=== PATIENT | female | born 1965 | race Caucasian/White ===

== ENCOUNTER 2024-05-28 08:08 | Day surgery (SDC) | payer OTHER, SELFPAY ==
[2024-05-28] VITALS (17 sets, daily range): BP systolic 130–183; BP diastolic 64–98; PULSE 53–88; RESP 12–18; TEMP 36.1–37.1; O2SAT 91–99; BMI 28.2
--- NOTE | 2024-05-28 08:20 | CRLHL7_ITS ---
For Patients: As a result of the Century Cures Act, medical imaging exams and procedure reports are released immediately into your electronic medical record. You may view this report before your referring provider. If you have questions, please contact your health care provider. INDICATION: Right flank pain. COMPARISON: None. TECHNIQUE: CT of the abdomen and pelvis without intravenous contrast. Multiplanar axial, coronal, and sagittal reformats were reconstructed. Contrast: None. FINDINGS: Lung bases: Normal. Liver: Normal. No mass. Gallbladder and bile ducts: Gallbladder is distended but there is not adjacent inflammation. No bile duct dilation. Pancreas: Normal. Spleen: Normal. Adrenal glands: Normal. Kidneys: Normal parenchyma. No cyst or solid mass. No calculi. No urinary tract dilation. Urinary bladder: Normal. Pelvis: No cyst or mass. Vessels: Atherosclerotic vascular calcifications. No aortic aneurysm. Bowel: No dilated or inflamed bowel. Normal appendix. Large cecal and ascending colon stool burden. Fecalization of the distal small bowel contents. Lymph nodes: No adenopathy. Peritoneum: No ascites. Abdominal wall: Fat containing right inguinal hernia Bones: No fractures. No focal worrisome bone lesions. IMPRESSION: 1. Large stool burden in the cecum with fecalization of the distal small bowel contents, may reflect slow transit constipation. 2. No urinary tract calculi or urinary tract dilatation. 3. Distended gallbladder. No immediately adjacent fluid or inflammatory stranding is seen. Please note that all CT scans at this facility use dose modulation, iterative reconstruction, and/or weight-based dosing when appropriate to reduce radiation dose to as low as reasonably achievable. Dictated by Marie Bang MD @ 05/28/2024 8:57:34 AM (Electronically Signed)
--- NOTE | 2024-05-28 08:21 | ED.ABDPAIN ---
HPI - Abdominal Pain General Chief Complaint: Abdominal Pain Stated Complaint: Back pain Time Seen by Provider: 05/28/24 08:16 History of Present Illness HPI narrative: Patient is a 58-year-old woman who presents with approximately 12 hours of right flank pain. The pain begins in the posterior midclavicular line extends anteriorly. She has had urinary frequency but no hematuria. She has had no fevers no chills no night sweats no cough no shortness of breath nor other abdominal pain. She has otherwise been in her usual good state of health takes no prescription medication. The pain is sharp and 6/10 in intensity. Related Data Home Medications ?Medication ?Instructions ?Recorded ?Confirmed No Known Home Medications 05/28/24 05/28/24 Allergies Allergy/AdvReac Type Severity Reaction Status Date / Time No Known Drug Allergies Allergy Verified 05/28/24 09:17 Review of Systems Status of ROS Reports: 10 or more systems reviewed and unremarkable except as noted in History and below Exam Narrative: Exam Narrative: EXAM GENERAL: Patient appears comfortable and well. EYES: No scleral icterus. LYMPH: No supraclavicular or cervical lymphadenopathy. SKIN: Visible skin seen during exam normal or with benign process only. EXT: No dependent lower extremity pedal edema. HEART: Regular rate and rhythm with no murmurs, rubs, or gallops. LUNGS: Clear to auscultation bilaterally with no crackles or wheezes. ABD: Primarily soft nontender with tenderness noted in the right upper quadrant with mild guarding. PSYCH: Good eye contact, speech is not pressured. Const: Vital Signs, click to edit/add: Vital Signs - 24 hr 05/28/24 08:13 Temperature 96.9 F L Pulse Rate [Pulse Oximeter] 68 Respiratory Rate 18 Blood Pressure [Ri ght Upper Arm] 183/82 H Pulse Oximetry 99 Oxygen Delivery Me thod Room Air Course Course ED Course: Patient seen and examined. CT scan CBC CMP lipase UA pending. Patient given 1 L of normal saline 4 mg of IV Zofran. Vital Signs Vital signs: Initial Vital Signs Temperature 96.9 F L 05/28/24 08:13 Temperature Source Temporal Artery Scan 05/28/24 08:13 Pulse Rate 68 05/28/24 08:13 Respiratory Rate 18 05/28/24 08:13 Blood Pressure 183/82 H 05/28/24 08:13 Blood Pressure Mean 115 H 05/28/24 08:13 Pulse Oximetry 99 05/28/24 08:13 Oxygen Delivery Method Room Air 05/28/24 08:13 Vital Signs Temperature 96.9 F L 05/28/24 08:13 Pulse Rate 68 05/28/24 08:13 Respiratory Rate 18 05/28/24 08:13 Blood Pressure 183/82 H 05/28/24 08:13 Pulse Oximetry 99 05/28/24 08:13 Oxygen Delivery Method Room Air 05/28/24 08:13 Temperature 96.9 F L 05/28/24 08:13 Pulse Rate 68 05/28/24 08:13 Respiratory Rate 18 05/28/24 08:13 Blood Pressure 183/82 H 05/28/24 08:13 Pulse Oximetry 99 05/28/24 08:13 Oxygen Delivery Method Room Air 05/28/24 08:13 Medications Administered Medications: Generic Name Dose Route Start Last Admin Trade Name Freq PRN Reason Stop Dose Admin Ondansetron HCl 4 mg 05/28/24 08:31 05/28/24 08:54 Ondansetron 2 Mg/Ml Inj IVP 4 mg ONCE PRN Administration Discontinued Medications Generic Name Dose Route Start Last Admin Trade Name Freq PRN Reason Stop Dose Admin Sodium Chloride 1,000 mls @ 1,000 mls/hr 05/28/24 08:32 05/28/24 10:03 0.9 % Sodium Chloride 1000 Ml IV 05/28/24 09:31 Infused .Q1H ALONDRA Infusion Ketorolac Tromethamine 30 mg 05/28/24 08:31 05/28/24 08:53 Ketorolac 30 Mg/Ml Inj IVP 05/28/24 08:32 30 mg ONCE ONE Administration MDM - Abdominal Pain MDM Narrative Medical decision making narrative: Patient is a 58-year-old woman who presents with approximately 12 hours of right-sided abdominal pain. CT scan showed a mildly distended gallbladder but no other acute abnormalities. Ultrasound shows a hydropic gallbladder with pericholecystic fluid multiple stones and sludge with a clear appearing common bile duct. This time I did review the case with General surgery will be keeping the patient NPO starting IV Zosyn and admit for cholecystectomy. Lab Data Labs: Lab Results 05/28/24 05/28/24 Range/Units 08:30 Unknown WBC 9.15 (4.50-11.00) K/uL RBC 5.11 (4.00-5.20) m/uL Hgb 14.8 (12.0-16.0) gm/dL Hct 47.0 (33.0-51.0) % MCV 92 (80-100) fL MCH 29 (26-34) pg MCHC 32 (32-36) gm/dL RDW Coeff of Jl 13.5 (11.5-15.5) % Plt Count 381 (140-440) K/uL Neut % (Auto) 80.1 H (42.0-72.0) % Lymph % (Auto) 15.3 L (20-44) % [place] % (Auto) 3.0 (0.0-11.0) % Eos % (Auto) 0.2 (0.0-7.0) % Baso % (Auto) 0.9 (0.0-3.0) % Neut # (Auto) 7.30 H (1.7-7.0) K/uL Lymph # (Auto) 1.40 (0.90-2.90) K/uL [place] # (Auto) 0.30 (0.00-0.90) K/UL Eos # (Auto) 0.02 (0.00-0.50) K/uL Baso # (Auto) 0.08 (0.00-0.30) K/uL Abs Immat Gran (auto) 0.05 (0.00-0.30) K/uL Imm/Tot Granulo (auto) 0.5 % Sodium 137 (135-149) mmol/L Potassium 4.1 (3.6-5.1) mmol/L Chloride 104 (96-114) mmol/L Carbon Dioxide 25 (20-32) mmol/L Anion Gap 8 (7-15) mEq/L BUN 19 (7-30) mg/dL Creatinine 0.5 (0.5-1.5) mg/dL Estimated Creat Clear 117.81 Estimated GFR 108 ml/min Glucose 151 H (60-115) mg/dL Calcium 9.1 (8.4-10.6) mg/dL Total Bilirubin 0.5 (0.1-1.5) mg/dL AST 24 (12-35) U/L ALT 25 (4-35) U/L Alkaline Phosphatase 92 (40-150) U/L Total Protein 8.1 (6.0-8.3) g/dL Albumin 4.9 (3.3-5.0) g/dL Lipase 144 (23-300) U/L Urine Color Yellow (Yellow) Urine Appearance Clear (Clear) Urine pH 7.5 (5.0-8.5) Ur Specific [place] 1.020 (1.000-1.030) Urine Protein Negative (Negative) Urine Glucose (UA) Negative (Negative) Urine Ketones Negative (Negative) Urine Blood Negative (Negative) Urine Nitrite Negative (Negative) Urine Bilirubin Negative (Negative) Urine Urobilinogen 0.2 (0.2-1.0) Ur Leukocyte Esterase Negative (Negative) Discharge Plan Discharge Clinical Impression: Acute cholecystitis Patient Disposition: Admitted As Observation Condition: Stable Activity Level: Other Discharge Diet: Other Prescriptions: No Action No Known Home Medications Follow Up/Referrals: Chris Eng MD [Referring] -
[2024-05-28 08:45] LABS: Basophils Absolute Auto 0.08 K/uL (0.00-0.30); Basophils Percent Auto 0.9 % (0.0-3.0); Eosinophils Absolute Auto 0.02 K/uL (0.00-0.50); Eosinophils Percent Auto 0.2 % (0.0-7.0); Hemoglobin* 14.8 gm/dL (12.0-16.0); Immature Granulocytes Abs Auto 0.05 K/uL (0.00-0.30); Immature Granulocytes Pct Auto 0.5 %; Lymphocytes Percent Auto 15.3 % (20-44); Mean Corpuscular HGB Conc 32 gm/dL (32-36); Mean Corpuscular Hemoglobin 29 pg (26-34); Mean Corpuscular Volume 92 fL (80-100); Neutrophils Percent Auto 80.1 % (42.0-72.0); Platelet Count* 381 K/uL (140-440); RDW Coefficient of Variation % 13.5 % (11.5-15.5); Red Blood Count 5.11 m/uL (4.00-5.20); White Blood Count* 9.15 K/uL (4.50-11.00)
[2024-05-28 08:46] LABS: Slide Review Reflex No
[2024-05-28] MEDS: 0.9 % SODIUM CHLORIDE 1000 ml 1,000 ML IV (08:53)
[2024-05-28] MEDS: KETOROLAC 30 MG/ML inj IVP (08:53)
[2024-05-28] MEDS: ONDANSETRON 2 MG/ML inj 4 MG IVP (08:54)
[2024-05-28 09:10] LABS: Albumin* 4.9 g/dL (3.3-5.0)
[2024-05-28 09:11] LABS: Chloride* 104 mmol/L (96-114); Potassium* 4.1 mmol/L (3.6-5.1); Sodium* 137 mmol/L (135-149)
[2024-05-28 09:13] LABS: Alkaline Phosphatase* 92 U/L (40-150); Anion Gap 8 mEq/L (7-15); Aspartate Amino Transferase* 24 U/L (12-35); Bilirubin Total* 0.5 mg/dL (0.1-1.5); Blood Urea Nitrogen* 19 mg/dL (7-30); Carbon Dioxide* 25 mmol/L (20-32); Creatinine* 0.5 mg/dL (0.5-1.5); Est. Creatinine Clearance* 117.81; Estimated Glomerular Filt Rate 108 ml/min; Total Protein* 8.1 g/dL (6.0-8.3)
[2024-05-28 09:14] LABS: Alanine Aminotransferase* 25 U/L (4-35); Calcium* 9.1 mg/dL (8.4-10.6); Glucose* 151 mg/dL (60-115); Lipase* 144 U/L (23-300)
--- NOTE | 2024-05-28 09:34 | CRLHL7_ITS ---
For Patients: As a result of the Century Cures Act, medical imaging exams and procedure reports are released immediately into your electronic medical record. You may view this report before your referring provider. If you have questions, please contact your health care provider. INDICATION: Right upper quadrant abdomen pain TECHNIQUE: Ultrasound abdomen limited. Sonographic images of the right upper quadrant were obtained using romano-scale and color Doppler images. COMPARISON: CT earlier on the same day FINDINGS: Gallbladder: Distended. Gallbladder wall mildly thickened at 3.3 mm. Multiple stones in the gallbladder including 1 in the neck. Small amount of pericholecystic fluid. Negative sonographic Buenrostro`s sign. Common bile duct: 4 mm. IMPRESSION: Cholelithiasis with some secondary evidence of acute cholecystitis, however sonographic Buenrostro`s sign is reportedly negative. Dictated by Ed Fang MD @ 05/28/2024 10:29:31 AM (Electronically Signed)
[2024-05-28 10:00] LABS: Appearance Urine Clear (Clear); Bilirubin Urine Negative (Negative); Blood Urine Negative (Negative); Color Urine Yellow (Yellow); Glucose Urine Negative (Negative); Ketones Urine Negative (Negative); Leukocyte Esterase Urine Negative (Negative); Nitrite Urine Negative (Negative); Protein Urine Negative (Negative); Urobilinogen Urine 0.2 (0.2-1.0); pH Urine 7.5 (5.0-8.5)
[2024-05-28] MEDS: PIPERACILLIN/TAZOBACTAM 3.375 GM in 0.9 % SODIUM CHLORIDE Mini-bag 100 ML IVPB (10:47)
[2024-05-28] MEDS: LACTATED RINGERS 1000 ML 1,000 ML 75 ML IV ×2 (11:34→12:49)
--- NOTE | 2024-05-28 11:43 | PM.GSHP ---
History of Present Illness History of Present Illness Date Seen: 05/28/24 Chief complaint: Back pain Narrative: Bobbi Hernandez is a 58 year old female who presented to the emergency department with back pain and right upper quadrant abdominal pain. She was awoken from sleep around 4:00 a.m. this morning with pain radiating to her back. She initially thought she had to go to the bathroom so she got up and had a bowel movement. The pain did not improve after a bowel movement or with moving around. The pain continued to worsen, which is what brought her into the emergency department. She has never had pain like this before. She does report some associated nausea and 1 episode of emesis. No fevers. Her abdominal surgical history is positive for a . She is otherwise healthy. Nonsmoker and takes no medications. Review of Systems Status of ROS: Reports: 10 or more systems reviewed and unremarkable except as noted in History and below Meds Home Medications and Allergies Home Medications ?Medication ?Instructions ?Recorded ?Confirmed ?Type No Known Home Medications 05/28/24 05/28/24 History Allergies Allergy/AdvReac Type Severity Reaction Status Date / Time No Known Drug Allergies Allergy Verified 05/28/24 09:17 Exam Narrative: Exam Narrative: General: Alert and oriented, no acute distress Respiratory: Equal breath rise bilaterally, maintained on room air CV: Well perfused Abdomen: Soft, some tenderness to deep palpation right upper quadrant with no guarding or rebound. Const: Vital Signs, click to edit/add: Vital Signs - 24 hr 05/28/24 08:13 05/28/24 10:54 Temperature 96.9 F L Pulse Rate [Pulse Oximeter] 68 65 Respiratory Rate 18 18 Blood Pressure [Ri ght Upper Arm] 183/82 H 147/76 H Pulse Oximetry 99 97 Oxygen Delivery Me thod Room Air Room Air Results Results Labs: Left shift, no leukocytosis. LFTs within normal limits. Abdomen CT scan report/results: report reviewed and image reviewed Abdominal ultrasound report/results: report reviewed and image reviewed Progress Note:A&P Assessment and plan (1) Acute cholecystitis: Status: Acute Assessment and Plan: Patient is a 58-year-old female who presented to the emergency department with clinical workup in history consistent with acute cholecystitis. I had a detailed conversation with the patient regarding the diagnosis of acute cholecystitis. We discussed the treatment options including observation with diet modification and laparoscopic cholecystectomy. We discussed the risks of surgery (including but not limited to) the risks of bleeding, infection, injury to other structures in the abdomen including bile duct injury, bile leak and conversion to an open operation. We discussed the possibility that the patient's pain not improve with surgery. We discussed the possibility of permanent post-operative diarrhea that may require medical management. Additionally, the conceivably of complications requiring additional surgery or further hospitalization were also discussed including the risks of [place], respiratory failure, stroke and blood clots. The patient voiced an understanding of our conversation, had the opportunity to ask questions, agreed to accept the risks of surgery and asked that we proceed with surgery.
[2024-05-28] MEDS: BUPIVACAINE 0.5% 30 ML INJECTION (12:07)
--- NOTE | 2024-05-28 13:07 | P.GSOP_ITS ---
Operative Note Date of procedure: 05/28/24 Pre-op diagnosis: Acute cholecystitis Post-op diagnosis: Same Type of Procedure: Laparoscopic cholecystectomy Indications: Patient is a 58-year-old female who presented to the emergency department clinical workup and history consistent with acute cholecystitis. Please see consultation note for full discussion. Risks and benefits of operative intervention were discussed at length with the patient. Risks included but was not limited to: Bleeding, infection, risk of damage to surrounding structures, possible need for additional procedures, possible need to convert to an open operation and postoperative complications such as pneumonia, pulmonary emboli or [place]. All questions and concerns were addressed with the patient agreeing to proceed. Procedure Description: After discussing the risks and benefits of the procedure, the patient signed informed consent.? The operative site was marked and the patient was brought to the operating room and placed on the operating table in supine position.? Care was taken to pad the patient's pressure points.?? The patient was then intubated by anesthesia.?? The operative site was then prepped and draped in the usual sterile fashion.? A time-out was then performed. Entrance to the abdomen was gained via a 5 mm Visiport in the left upper quadrant. The abdomen was insufflated and briefly surveyed for signs of injury. There was none. 11 mm umbilical port was placed as well as 2 working ports stacey g the right costal margin. Patient was then placed in reverse Trendelenburg position with the right side up. The gallbladder fundus was distended. The gallbladder was decompressed with removal of 60 mL bilious fluid. This allowed the fundus to be grasped and retracted cephalad. A small amount of dissection was needed to free omental adhesions from the gallbladder. The infundibulum was grasped. A combination of hook cautery and blunt dissection was used to carefully dissect out the cystic duct and artery until they could clearly be seen entering the gallbladder without any intervening structures. The gallbladder was dissected off the cystic plate to achieve the critical view. Once this was achieved the cystic duct and artery were each clipped with 2 clips proximally and 1 clip distally and transected with the scissors. The gallbladder was then taken off of the liver bed. A small bleeding artery on the liver bed was controlled with a single 5 mm clip. The gallbladder was then removed from the abdomen using an Endo-Catch bag. The gallbladder bed was surveyed for hemostasis. A small amount of bile which had spilled was suctioned from the abdomen The umbilical port fascia was closed with 0 Vicryl via the [place]. All other ports were closed under direct visualization. The skin was closed with absorbable subcuticular suture. Instrument sponge and needle counts were correct at the end of the case. The patient was then woken and transferred to the PACU in stable condition. Findings: Inflamed gallbladder, cholelithiasis. Anesthesia: GETA Surgeon: Zora Sierra MD Estimated blood loss (mL): 5 Specimen: Gallbladder Condition: stable Disposition: PACU
--- NOTE | 2024-05-28 13:24 | W.ANESCHARGE ---
Anesthesia Charges Start Date/Time Anesthesia Start Date: 05/28/24 Anesthesia Start Time: 11:34 Stop Date/Time Anesthesia Stop Date: 05/28/24 Anesthesia Stop Time: 13:19
[2024-05-28] MEDS: LACTATED RINGERS 1000 ML 1,000 ML 35 ML IV (13:27)
[2024-05-28] MEDS: HYDROCODONE-ACETAMIN 5-325 MG 1 TAB PO (16:04)
--- NOTE | 2024-05-28 18:17 | PC.NURSE ---
Discharge: Patient pleasant and cooperative. Patient vitally stable, lungs clear, BS WNL, IV removed, catheter intact. Patient rates pain at most 2/10, 1 norco tab given once. Patient urinating well, over 500 ml, and tolerating regular diet. Patient abdominal lap sites C/D/I with old serosanguineous drainage. Patient signed belongings sheet and discharge form. Patient had no further questions regarding discharge education. Patient left the floor by foot to home at 1745.
== END 2024-05-28 17:45 | disposition home or self-care (01) ==
LOC: ED 10:30 → SS 10:36 → MEDSURG 14:15
PROVIDERS: Hospitalist; Emergency Provider Internal Medicine; Visit Provider Surgery
PROC: 0FT44ZZ Resection of Gallbladder, Percutaneous Endoscopic Approach (ICD-10-PCS; CPT 47562; principal; 2024-05-28 11:30)
DX: K80.00 Calculus of gallbladder with acute cholecystitis without obstruction (principal); R10.11 Right upper quadrant pain
CPT/HCPCS: 47562; 00790; 36415; 74176; 76705; 80053; 81003; 83690; 85025; 88304; 99283; 99284; 99285; A9270; J0330; J0665; J1885; J2250; J2405; J2543; J2704; J2710; J3010; J7030; J7120

== ENCOUNTER 2025-06-01 07:20 | Outpatient (CLI) | payer OTHER, SELFPAY | END 2025-06-01 07:21 | disposition home or self-care (01) | LOC: NFLDREF 06-12 11:12 | PROVIDERS: Visit Provider Nurse Practitioner Family | DX: N30.01 Acute cystitis with hematuria (principal); B96.20 Unspecified Escherichia coli [E. coli] as the cause of diseases classified elsewhere | CPT/HCPCS: 87086 ==